=== PATIENT | male | born 2000 | race Hispanic/Latino ===

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

== ENCOUNTER 2019-06-20 11:17 | Emergency (ER) | payer MEDICAID, OTHER | END 2019-06-20 13:12 | disposition home or self-care (01) | LOC: EDH 11:17 | DX: R19.7 Diarrhea, unspecified (principal); Z88.0 Allergy status to penicillin; Z88.6 Allergy status to analgesic agent ==